=== PATIENT | female | born 1990 | race Caucasian/White ===

== ENCOUNTER → 2017-04-04 | Outpatient (CLI) | payer MEDICAID | LOC: FIMAGING 18:58 | PROVIDERS: ATTEND Psychiatry & Neurology Neurology | DX: M50.822 Other cervical disc disorders at C5-C6 level (principal); R20.2 Paresthesia of skin ==

== ENCOUNTER 2017-08-27 18:28 | Emergency (ER) | payer MEDICAID, OTHER ==
[2017-08-27 18:41] VITALS: TEMP 98.2; O2SAT 98
[2017-08-27] MEDS ORDERED: IBUPROFEN 600 MG TAB PO ONE (18:48)
--- NOTE | 2017-08-27 19:28 | EDPHY ---
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 She presents with left shoulder pain that came on acutely when she was lifting a case of soda at work. She has limited range of motion of her shoulder due to pain. The pain is located on top of her shoulder. The pain is constant, deep, and aching. She has not taken any medication for this yet. She denies weakness. She has some tingling in her arm. REVIEW OF SYSTEMS: A ten point review of systems was performed and is negative with the exception of the items mentioned in the HPI. Past medical history: Negative Past surgical history: Left rotator cuff repair Social history: She is employed up [employer]. She smokes cigarettes. General Appearance: Alert. Vital signs reviewed. Neck: Nontender to palpation over the cervical spine in the midline. Respiratory: Lungs are clear to auscultation; no wheezes, rales, or rhonchi. Cardiovascular: Regular rate and rhythm; no murmur, rub, or gallop. Skin: Warm and dry, no rashes on exposed skin, normal color. Back: Nontender to palpation over the thoracolumbar spine. Extremities:. Limited range of motion of the left shoulder due to pain. She is unable to raise her left arm up over her head. Neurological: Alert and oriented. 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 Sensation is intact to light touch over the left upper extremity. Pulse: 2+ radial pulses bilaterally. Psychiatric: Normal affect. - Personal History LMP (Females 10-55): 15-21 Days Ago Current Tetanus/Diphtheria Vaccine: Unsure - Medical/Surgical History Hx Asthma: No Hx Chronic Respiratory Disease: No Hx Diabetes: No Hx Cardiac Disease: No Hx Renal Disease: No Hx Cirrhosis: No Hx Alcoholism: No Hx HIV/AIDS: No Hx Splenectomy or Spleen Trauma: No Other PMH: PMH: denies. PSH: left shoulder 2007, roxana in left femur, tubal ligation - Social History Smoking Status: Current every day smoker Constitutional: Initial Vital Signs Temperature (C) 36.8 C 08/27/17 18:38 Heart Rate 91 08/27/17 18:38 Respiratory Rate 16 08/27/17 18:38 Blood Pressure 131/92 H 08/27/17 18:38 O2 Sat (%) 98 08/27/17 18:38 O2 Delivery Mode Room Air Allergies/Adverse Reactions: Sulfa (Sulfonamide Antibiotics) Allergy (Verified 08/27/17 18:37) Home Medications: Medication Instructions Recorded NK [No Known Home Meds] 08/27/17 Medical Decision Making - Diagnostics Imaging Results: Imaging Impressions Shoulder X-Ray 08/27/17 18:42 Impression: Normal. No source for pain identified. ED Course/Re-evaluation: Shoulder pain after lifting. History of rotator cuff repair. No neurovascular deficit but limited range of motion due to pain. X-rays negative for bony injury. She is provided a sling to use as needed and will follow up with workman's compensation. She will use [id number] pain medication for pain relief. Differential Diagnosis: I considered a differential diagnosis of sprain, strain, dislocation, and fracture. - Data Points Medications Given: Discontinued Medications Ibuprofen (Motrin) 600 mg PO EDNOW ONE Stop: 08/27/17 18:49 Last Admin: 08/27/17 18:51 Dose: 600 mg Departure - Departure Disposition: Home, Routine, Self-Care Clinical Impression: Sprain of shoulder, left Qualifiers: Encounter type: initial encounter Shoulder sprain type: unspecified sprain Qualified Code(s): S43.402A - Unspecified sprain of left shoulder joint, initial encounter Condition: Good Instructions: Shoulder Sprain (ED) Additional Instructions: Adult Pain & Fever Control: We recommend Acetaminophen (Tylenol) and Ibuprofen (Motrin,Advil) for pain and fever control. When fever is high or pain severe, both drugs can be used at the same time, but at different intervals. Please note the time differences. Your dose is: Acetaminophen 650mg every 4 to 6 hours Ibuprofen 400mg every 6 hours with food OR Naproxen Sodium (Aleve) mg every 12 hours. Note: do not take Acetaminophen with Hydrocodone (Vicodin, Lortab) or Oycodone (Percocet). These medications also contain Acetaminophen. No more than 3000mg of Acetaminophen should be taken in 24 hours (for an adult). Follow-up with workman's compensation physician as directed by your employer. I am providing information about the workman's compensation connected with this facility, but check with your employer about where you should go for follow-up. Wear the sling as needed for comfort. As we discussed, do not let your shoulder freeze up. Referrals: [facility] [Outside] - As per Instructions Work Comp Referral [facility] [place] [Outside] - As per Instructions
[2017-08-27 19:36] VITALS: BP 128/82; PULSE 86; RESP 18
== END 2017-08-27 19:33 | disposition home or self-care (01) ==
LOC: CED 18:28
DX: S43.402A Unspecified sprain of left shoulder joint, initial encounter (principal); F17.200 Nicotine dependence, unspecified, uncomplicated; X50.0XXA Overexertion from strenuous movement or load, initial encounter
CPT/HCPCS: 73030-PO; A4565